=== PATIENT | male | born 1995 | race Caucasian/White ===

== ENCOUNTER 2017-04-04 14:19 | Emergency (ER) | payer MEDICARE, MEDICAID, SELFPAY ==
[2017-04-04 14:40] VITALS: BP 159/72; PULSE 98; RESP 20; TEMP 37.5; O2SAT 99; BMI 27.7
--- NOTE | 2017-04-04 15:01 | HMH.EDUTC ---
[facility] [place] Disposition Clinical Impression: Influenza Disposition: Home, Self-Care Condition on Discharge: Good Instructions: Influenza, DI for Fever (Symptom) -- Adult Additional Instructions: ? Lots of rest ? Increase Fluids water, Gatorade, powerade, pedialyte,if /toddler/child ? Alternate Tylenol and / or ibuprofen as discussed for fever, aches, chills x 24 hours without medication for symptoms ? Follow up IMMEDIATELY for new or worsening Symptoms OR no noticeable improvement over the next 48-72 hours, 911 for difficulty or breathing ? You or your child area contagious until no fever, aches, chills for 24 hours with medication for symptoms Prescriptions: Brompheniramine/Pseudoephed/Dm [Bromfed DM Cough Syrup 5mL] 10 ml PO Q4H PRN #250 syrup PRN Reason: Cough Time of Disposition: 15:36 Medical Decision Making - Medical Records Medical records reviewed: Yes: I reviewed the patient's medical records. Vital Signs: 04/04/17 14:40 Temperature 99.5 F Temperature Source Temporal Artery Scan Pulse Rate [Right] 98 H Respiratory Rate 20 Blood Pressure [Right Arm] 159/72 Blood Pressure Mean [Right Arm] 101 Blood Pressure Source [Right Arm] Automatic Cuff Blood Pressure Position [Right Arm] Sitting 02 Sat by Pulse Oximetry 99 Oxygen Delivery Method Room Air - Lab Data Lab Results 04/04/17 15:09: Influenza Type A Ag Positive A, Influenza Type B Ag Negative 04/04/17 15:30: Strep Scn Rapid Clinic Negative Orders (Tests/Meds): ORDERS Category Date Time Status Strep Screen Confirmation Stat Micro 04/04/17 15:30 Received - Howard Inquiry Pt receiving controlled substance: No Howard was queried for this patient: No - Reevaluation(s) Time: 15:32 Reevaluation #1: Patient was educated on flu testing states that he felt ok yesterday and worse today Patient informed that if he was negative last week that could be why he is feeling worse today he is now flu positive. Patient informed to continue taking last few dose of Tamiflu [facility] [place] HPI - General Stated complaint: has flu no better Mode of Arrival: Ambulatory Source of Information: Patient Limitations: No Limitations Description of Symptoms (Recalled from Triage Doc. by RN): POSITIVE FOR FLU, COUGH, CONGESTION X1 WK HEENT Symptoms (Recalled from RN notes): Yes Resp Symptoms (Recalled from RN notes): No Skin Symptoms (Recalled from RN notes): No MS Symptoms (Recalled from RN notes): No Functional Status (Recalled from RN notes): N - History of Present Illness Provider Complaint: Patient state that he was seen and diagnosed with flu last week States that they did not swab him but his girlfriend was positive for the flu and they told him he probably had it too and put him on Tamiflu State that today he feels horrible, having fever, cough sinus pain and pressure and not feeling well at all - Related Data Previous Rx's Medication Instructions Recorded Brompheniramine/Pseudoephed/Dm 10 ml PO Q4H PRN #250 syrup 04/04/17 [Bromfed DM Cough Syrup 5mL] - Worker's Comp Is this a Worker's Comp case?: No [facility] History I have reviewed the patient's past medical history: Yes - *Social History Alcohol Intake: never - Psychiatric History Expresses thoughts of harming self/others: None Suicide Plan Description: No Plan ROS Obtained: Yes All systems reviewed & no additional complaints - Constitutional Constitutional: Reports body ache, Reports chills, Reports fatigue, Reports fever(s) - ENT Ears, Nose, Mouth, and Throat: Reports sinus pain, Reports sinus pressure, Reports sore throat - Cardiovascular Cardiovascular: Denies chest pain - Respiratory Respiratory: Yes cough, No wheezing Physical Exam - General General appearance: alert, in no apparent distress - Expanded ENT Exam Nose exam: Present: sinus tenderness Comment: Throat red, irritated not exudate noted - Respiratory Respiratory exam: Present: normal lung soun
--- NOTE | 2017-04-04 15:09 | ED_ITS ---
[facility] [place] Disposition Clinical Impression: Influenza Disposition: Home, Self-Care Condition on Discharge: Good Instructions: Influenza, DI for Fever (Symptom) -- Adult Additional Instructions: ? Lots of rest ? Increase Fluids water, Gatorade, powerade, pedialyte,if /toddler/child ? Alternate Tylenol and / or ibuprofen as discussed for fever, aches, chills x 24 hours without medication for symptoms ? Follow up IMMEDIATELY for new or worsening Symptoms OR no noticeable improvement over the next 48-72 hours, 911 for difficulty or breathing ? You or your child area contagious until no fever, aches, chills for 24 hours with medication for symptoms Prescriptions: Brompheniramine/Pseudoephed/Dm [Bromfed DM Cough Syrup 5mL] 10 ml PO Q4H PRN # 250 syrup PRN Reason: Cough Time of Disposition: 15:36 Medical Decision Making - Medical Records Medical records reviewed: Yes: I reviewed the patient's medical records. Vital Signs: 04/04/17 14:40 Temperature 99.5 F Temperature Source Temporal Artery Scan Pulse Rate [Right] 98 H Respiratory Rate 20 Blood Pressure [Right Arm] 159/72 Blood Pressure Mean [Right Arm] 101 Blood Pressure Source [Right Arm] Automatic Cuff Blood Pressure Position [Right Arm] Sitting 02 Sat by Pulse Oximetry 99 Oxygen Delivery Method Room Air - Lab Data Lab Results 04/04/17 15:09: Influenza Type A Ag Positive A, Influenza Type B Ag Negative 04/04/17 15:30: Strep Scn Rapid Clinic Negative Orders (Tests/Meds): ORDERS Category Date Time Status Strep Screen Confirmation Stat Micro 04/04/17 15:30 Received - Howard Inquiry Pt receiving controlled substance: No Howard was queried for this patient: No - Reevaluation(s) Time: 15:32 Reevaluation #1: Patient was educated on flu testing states that he felt ok yesterday and worse today Patient informed that if he was negative last week that could be why he is feeling worse today he is now flu positive. Patient informed to continue taking last few dose of Tamiflu [facility] [place] HPI - General Stated complaint: has flu no better Mode of Arrival: Ambulatory Source of Information: Patient Limitations: No Limitations Description of Symptoms (Recalled from Triage Doc. by RN): POSITIVE FOR FLU, COUGH, CONGESTION X1 WK HEENT Symptoms (Recalled from RN notes): Yes Resp Symptoms (Recalled from RN notes): No Skin Symptoms (Recalled from RN notes): No MS Symptoms (Recalled from RN notes): No Functional Status (Recalled from RN notes): N - History of Present Illness Provider Complaint: Patient state that he was seen and diagnosed with flu last week States that they did not swab him but his girlfriend was positive for the flu and they told him he probably had it too and put him on Tamiflu State that today he feels horrible, having fever, cough sinus pain and pressure and not feeling well at all - Related Data Previous Rx's Medication Instructions Recorded Brompheniramine/Pseudoephed/Dm 10 ml PO Q4H PRN #250 syrup 04/04/17 [Bromfed DM Cough Syrup 5mL] - Worker's Comp Is this a Worker's Comp case?: No [facility] History I have reviewed the patient's past medical history: Yes - *Social History Alcohol Intake: never - Psychiatric History Expresses thoughts of harming self/others: None Suicide Plan Description: No Plan ROS Obtained: Yes All
[2017-04-04 15:27] LABS: UTC Influenza A Antigen Positive (Negative); UTC Influenza B Antigen Negative (Negative)
[2017-04-04 15:31] LABS: UTC Strep Screen (Rapid) Negative (Negative)
[2017-04-04 15:46] VITALS: BP 159/72; PULSE 90; RESP 18; TEMP 37.2
== END 2017-04-04 15:47 | disposition home or self-care (01) ==
PROVIDERS: Emergency Provider Nurse Practitioner
DX: J09.X2 Influenza due to identified novel influenza A virus with other respiratory manifestations (principal)
CPT/HCPCS: G0463; 87804; 87880; 99201

== ENCOUNTER 2020-07-25 20:43 | Emergency (ER) | payer MEDICARE, MEDICAID, SELFPAY ==
[2020-07-25 20:46] VITALS: BP 106/59; PULSE 81; RESP 17; TEMP 37.9; O2SAT 100; BMI 24.5
[2020-07-25 21:01] VITALS: BP 106/59; PULSE 81; RESP 17; TEMP 37.9; O2SAT 100
--- NOTE | 2020-07-25 21:31 | HMH.EDUTC ---
[facility] [place] Disposition Clinical Impression: Strep throat, Pain, dental Disposition: Home, Self-Care Condition on Discharge: Good Instructions: DI for Dental Pain, Tooth Decay Additional Instructions: *Monitor Temp, Over the counter Motrin or Tylenol as directed/as needed Tylenol every 4 hours and Motrin every 6 hours (as long as your family doctor has told you that you can take it) for fever or pain. and straight to ER if unable to lower temp less than 101.0 after medication given *Warm salt water gargles may help to soothe the throat *Throat Lozenges *Warm fluids like tea with honey may help to soothe the throat *Sleep elevated *Humidifier/Vaporizer *Call and make appointment with Dentist for further evaluation and treatment Use dental balls as advised for dental pain Take antibiotics as prescribed Your throat swab was sent for culture. Those results are typically sent to your primary care. Be sure to follow up in 2-3 days with your family doctor/primary care physician if no improvement so they can review those result and treat if necessary. If you don?t have a primary care doctor, I recommend you get one but in the mean time, you will have to return to a walk in clinic Follow up IMMEDIATELY for new or worsening symptoms or no Noticeable improvement over the next 48-72 hours. 911 for difficulty breathing or swallowing Prescriptions: Ibuprofen [Ibuprofen 600mg Tablet] 600 mg PO Q6HP PRN #20 tab PRN Reason: Moderate Pain Transmission Status: Pending to [facility] Amoxicillin [Amoxicillin 500mg Cap] 500 mg PO TID #30 cap Transmission Status: Pending to [facility] Referrals: Luis Alberto Mtz [Primary Care Provider] - As needed Reginaldo Barfield [Referring] - Time of Disposition: 21:42 Medical Decision Making - Howard Inquiry Pt receiving controlled substance: No Howard was queried for this patient: No Vital Signs: 07/25/20 20:46 07/25/20 21:01 Temperature 100.2 F H 100.2 F H Temperature Source Oral Pulse Rate 81 Pulse Rate [Left] 81 Respiratory Rate 17 17 Blood Pressure 106/59 L Blood Pressure [Right Arm] 106/59 L Blood Pressure Mean [Right Arm] 74 02 Sat by Pulse Oximetry 100 Orders (Tests/Meds): ED MEDICATIONS Discontinued Medications Generic Name Dose Route Start Last Admin Trade Name Delon PRN Reason Stop Dose Admin Acetaminophen 650 mg 07/25/20 21:01 07/25/20 21:04 Acetaminophen 325mg Tab PO 07/25/20 21:02 650 mg ONCE ONE Administration Benzocaine/Butamben/Tetracaine HCl 1 gm 07/25/20 21:07 07/25/20 21:09 Tetracaine/Benzocaine/Butamben 56 Gm [place] TP 07/25/20 21:08 1 gm ONCE ONE Administration Lidocaine HCl 15 ml 07/25/20 21:07 07/25/20 21:08 Lidocaine 2% Viscous Caroline 15ml Udc PO 07/25/20 21:08 15 ml ONCE ONE Administration [facility] [place] HPI - General Stated complaint: boken tooth Time Seen by Provider: 07/25/20 21:31 Mode of Arrival: Ambulatory Source of Information: Patient Limitations: No Limitations Description of Symptoms (Recalled from Triage Doc. by RN): Pt states that hisleft back bottom tooth broke off 2 days ago. Pt would like to know if we con pull it or give pain medicine. Pt reports going to his family doctor to day and letting hime dig in it . HEENT Symptoms (Recalled from RN notes): Yes Resp Symptoms (Recalled from RN notes): No Skin Symptoms (Recalled from RN notes): No MS Symptoms (Recalled from RN notes): No Functional Status (Recalled from RN notes): wnl - History of Present Illness Provider Complaint: Patient states that he has been having pain in his back tooth on left bottom has been bothering him for the last couple of days and his family member looked at it and he thinks he may have broken it States that it has continued to get worse and hurts State that also thinks he may have strep throat his throat has been hurting and he has fever - Related Data Previous Rx's Medication Instructions Recorded
[2020-07-25 21:40] LABS: UTC Strep Screen (Rapid) Positive (Negative)
== END 2020-07-25 21:45 | disposition home or self-care (01) ==
PROVIDERS: Emergency Provider Nurse Practitioner; PCP Family Medicine
DX: J02.0 Streptococcal pharyngitis (principal); K08.89 Other specified disorders of teeth and supporting structures
CPT/HCPCS: G0463; 87880; 99202